=== PATIENT | male | born 1980 | race Caucasian/White ===

== ENCOUNTER 2020-08-31 16:13 | Emergency (ER) | payer BC ==
[~2020-08-31] VITALS: Ht 175.3 cm; Wt 108.9 kg
--- NOTE | ~2020-08-31 | EMS ---
[place] [address] EMS Patient Care Report Name: ESTER MACKEY Room #: DEP KRYSTIN Preciado#: [id number] Admission: 08/31/20 Attend Phys: Discharge: 08/31/20 Date of : 82 Report #: [id number] THIS REPORT FOR: //name// Report Transmitted: 08/31/2020 17:46 EMS Care Summary [place], [place]/[facility] Incident [phone] @ 08/31/2020 15:32 Incident Location [address] [place] [address] Patient ESTER MACKEY Male, 40 Years 1980 Patient Address [address] [place] [address] Patient History Back Pain (Chronic), Patient Allergies No known allergies, Patient Medications Other, Ibuprofen, Chantix, Chief Complaint BACK SPASMS Disposition Transported No Lights/[place] Dispatch Reason Sick Person Transported To [facility] Narrative RESPONDED TO SICK AT HOME. UPON ARRIVAL PT FOUND LAYING SUPINE ON BEDROOM FLOOR ALERT AND ORIENTED. PT REPORTS HAVING ON/OFF BACK PAINS FOR THE LAST COUPLE DAYS BUT THIS MORNING THE SPASMS ARE SEVERE. PT IS UNABLE TO AMBULATE ON HIS OWN .PT LOWERED HIMSELF TO THE FLOOR SO NO TRAUMA NOTED ANYWHERE. [place] [address] EMS Patient Care Report Name: ESTER MACKEY Room #: DEP KRYSTIN Preciado#: [id number] Admission: 08/31/20 Attend Phys: Discharge: 08/31/20 Date of : 82 Report #: [id number] OF BACK SPASMS AND TAKES MUSCLE RELAXERS BUT TODAY WITH NO RELIEF. PT ASSISTED WALK TO COT OUTSIDE OF HOME. PT VITALS OBTAINED. PT TRANSPORTED TO [facility] WITH NO CHANGES. PT SCOOTED TO BED AND HANDRAILS UP. REPORT GIVEN TO NURSE. Initial Vitals @16:01P: 80,R: 18,BP: 137/84,SpO2: 97, @15:53P: 80,R: 18,BP: 144/97,Pain: 8/10,GCS: 15,SpO2: 100,Revised Trauma: 12, Assessments @15:45MENTAL:Person Oriented,Time Oriented,Place Oriented,Event Oriented,SKIN:HEENT:Head/Face: No Abnormalities,Eyes: No Abnormalities,Neck/Airway: No Abnormalities,LUNG SOUNDS:General: No Abnormalities,Left Upper: No Abnormalities,Right Upper: No Abnormalities,Left Lower: No Abnormalities,Right Lower: No Abnormalities,ABDOMEN:General: No Abnormalities,Left Upper: No Abnormalities,Right Upper: No Abnormalities,Left Lower: No Abnormalities,Right Lower: No Abnormalities,PELVIS//GI:No Abnormalities,EXTREMITIES:Left Arm: No Abnormalities,Right Arm: No Abnormalities,Left Leg: No Abnormalities,Right Leg: No Abnormalities,PULSE:NEURO:No Abnormalities,@15:52MENTAL:No Abnormalities,SKIN:No Abnormalities,HEENT:Head/Face: No Abnormalities,Eyes: No Abnormalities,Neck/Airway: No Abnormalities,LUNG SOUNDS:General: No Abnormalities,Left Upper: No Abnormalities,Right Upper: No Abnormalities,Left Lower: No Abnormalities,Right Lower: No Abnormalities,ABDOMEN:General: No Abnormalities,Left Upper: No Abnormalities,Right Upper: No Abnormalities,Left Lower: No Abnormalities,Right Lower: No Abnormalities,PELVIS//GI:No Abnormalities,EXTREMITIES:Left Arm: No Abnormalities,Right Arm: No Abnormalities,Left Leg: No Abnormalities,Right Leg: No Abnormalities,PULSE:NEURO:No Abnormalities, Impression Back Pain Procedures @15:45ALS AssessmentResponse: UnchangedSucceeded Timeline 15:31,Call Received 15:31,Dispatch Notified 15:32,Dispatched 15:32,En Route 15:42,On Scene 15:44,At Patient 15:45,ALS Assessment,Response: UnchangedSucceeded, 15:53,BP: 144/97 M,PULSE: 80,RR: 18 R,SPO2: 100 Ox,ETCO2: ,BG: ,PAIN: 8,GCS: 15, 15:55,Depart Scene [address] [address] EMS Patient Care Report Name: [facility] Room #: DEP KRYSTIN Preciado#: [id number] Admission: 08/31/20 Attend Phys: Discharge: 08/31/20 Date of : 82 Report #: [id number] 16:01,BP: 137/84 M,PULSE: 80,RR: 18 R,SPO2: 97 Ox,ETCO2: ,BG: ,PAIN: ,GCS: , 16:10,At Destination 16:25,Call Closed Disclaimer v1.1 Copyright 2020 [employer] This EMS Care Summary contains data elements from the applicable legal record (which may be displayed differently). It is designed to provide pertinent information for the following purposes: continuity of care, clinical quality, and state data reporting. The complete legal record is available to ED staff and administrators of the receiving hospital in [employer] Patient Tracker. All data is provided "as is."
[2020-08-31] MEDS ORDERED: CHANTIX1 EACH PO (16:21)
[2020-08-31] MEDS ORDERED: ZANAFLEX4 MG PO (16:41)
[2020-08-31 16:46] VITALS: BP 128/74
== END 2020-08-31 17:20 | disposition home or self-care (01) ==
LOC: ER 16:13
DX: M62.830 Muscle spasm of back (principal)